=== PATIENT | female | born 1980 | race Caucasian/White ===

== ENCOUNTER 2016-06-07 13:25 | Day surgery (SDC) | payer BC ==
--- NOTE | 2016-06-08 11:51 | Operative Note ---
DATE OF SURGERY: 06/07/2016 PREOPERATIVE DIAGNOSIS: Urinary urge incontinence. POSTOPERATIVE DIAGNOSIS: Urinary urge incontinence. PROCEDURE: Cystoscopy. Surgeon: Jasvir Pardo M.D. Anesthesia: Local. PROCEDURE: Preop informed consent was obtained. Antibiotics were given. The patient was brought to the Procedure Room at the [facility], placed supine and in a modified frog-legged position with the genitalia prepped and draped sterilely. Flexible cystoscopy was performed. The urethra appears unremarkable. The external genitalia and vaginal vault appears well supported without any significant prolapse or abnormality. The bladder was entered and inspected systematically. The ureteral orifice had normal appearance and positioning. The bladder appeared unremarkable with no evidence of tumor, stone, foreign body or any urothelial abnormality whatsoever. The scope was then withdrawn. The procedure was terminated and the patient tolerated this quite well. PLAN: I held a discussion regarding management of her urge incontinence symptoms and she has agreed to try VESIcare 10 mg samples for 1 month and then follow up in the [facility] to review her response to this treatment. CC: Al Klein D.O. JERARDO
== END 2016-06-07 13:37 | disposition home or self-care (01) ==
LOC: HOP 13:25
PROVIDERS: ATTEND Urology
DX: R32 Unspecified urinary incontinence (principal)

== ENCOUNTER 2017-02-01 19:50 | Emergency (ER) | payer BC ==
--- NOTE | 2017-02-01 20:04 | Emergency Department Record ---
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 At home tonight around 7 p.m. she developed a substernal pressure/ache radiating straight through to her back about 5/10 severity which continues to the present exam. It is NOT associated with SOB, KAMI, diaphoresis , and she knows of nothing that makes it worsen, or improves it. She too a generic xanax prior to arrival but it has also not helped.. She has had much milder chest pressure associated with anxiety in the past, but this is much more severe and prolonged compared to her prior episodes. She has no history of DE, PE, DVT, CVA, DM, htn, chol elevation, or FH DE. - Related Data Home Medications Medication Instructions Recorded Confirmed Last Taken Alprazolam [Xanax] 0.25 mg PO Q8H PRN 02/01/17 02/01/17 02/01/17 Bupropion HCl [Bupropion Xl] 150 mg PO DAILY 02/01/17 02/01/17 Unknown Norethindrone-E.estradiol-Iron 1 tab PO DAILY 02/01/17 02/01/17 Unknown [Blisovi Fe 1.5-30 Tablet] Solifenacin Succinate [Vesicare] 10 mg PO DAILY 02/01/17 02/01/17 Unknown Allergies Allergy/AdvReac Type Severity Reaction Status Date / Time No Known Drug Allergies Allergy Verified 09/25/13 15:04 Review of Systems Reviewed: No additional complaints except as noted below Constitutional: Reports: As per HPI. Denies: Chills, Fever, Malaise, Night sweats, Weakness, Weight change Eyes: Reports: As per HPI. Denies: Eye discharge, Eye pain, Photophobia, Vision change ENT: Reports: As per HPI. Denies: Congestion, Dental pain, Ear pain, Epistaxis , Hearing loss, Throat pain Respiratory: Reports: As per HPI. Denies: Cough, Dyspnea, Hemoptysis, Stridor, Wheezes Cardiovascular: Reports: As per HPI. Denies: Arrhythmia, Chest pain, Dyspnea on exertion, Edema, Murmurs, Orthopnea, Palpitations, Paroxysmal nocturnal dyspnea, Rheumatic Fever, Syncope Endocrine: Reports: As per HPI. Denies: Fatigue, Heat or cold intolerance, Polydipsia, Polyuria Gastrointestinal: Reports: As per HPI. Denies: Abdominal pain, Constipation, Diarrhea, Hematemesis, Hematochezia, Melena, Nausea, Vomiting Genitourinary: Reports: As per HPI. Denies: Abnormal menses, Discharge, Dyspareunia, Dysuria, Frequency, Hematuria, Incontinence, Retention, Urgency Musculoskeletal: Reports: As per HPI. Denies: Arthralgia, Back pain, Gout, Joint swelling, Myalgia, Neck pain Skin: Reports: As per HPI. Denies: Bruising, Change in color, Change in hair/ nails, Lesions, Pruritus, Rash Neurological: Reports: As per HPI. Denies: Abnormal gait, Confusion, Headache, Numbness, Paresthesias, Seizure, Tingling, Tremors, Vertigo, Weakness Psychiatric: Reports: As per HPI. Denies: Anxiety, Auditory hallucinations, Depression, Homicidal thoughts, Suicidal thoughts, Visual hallucinations Hematological/Lymphatic: Reports: As per HPI. Denies: Anemia, Blood Clots, Easy bleeding, Easy bruising, Swollen glands Past Medical History - SOCIAL HISTORY Smoking Status: Never smoker - RESPIRATORY Hx Respiratory Disorders: No - CARDIOVASCULAR Hx Cardio Disorders: No - NEURO Hx Neuro Disorders: No - GI Hx GI Disorders: No - Hx Genitourinary Disorders: No - ENDOCRINE Hx Endocrine Disorders: No - MUSCULOSKELETAL Hx Musculoskeletal Disorders: No - PSYCH Hx Psych Problems: No - HEMATOLOGY/ONCOLOGY Hx Hematology/Oncology Disorders: No Physical Exam - General General Appearance: Alert, Oriented x3, Cooperative, No acute distress - Head Head exam: Normal inspection - Eye Eye exam: Normal appearance, PERRL Pupils: Normal accommodation - ENT ENT exam: Normal exam, Mucous membranes moist, Normal external ear exam, Normal orophraynx, TM's normal bilaterally Ear exam: Normal external inspection. negative: External canal tenderness Nasal Exam: Normal inspection. negative: Discharge, Sinus tenderness Mouth exam: Normal external inspection, Tongue normal Teeth exam: Normal inspection. negative: Dental caries Throat exam: Normal inspection. negative: Tonsillar erythema, Tonsillar exudate - Neck Neck exam: Normal inspection, Full ROM. negative: Tenderness - Respiratory Respiratory exam: Normal lung sounds bilaterally. negative: Respiratory distress - Cardiovascular Cardiovascular Exam: Regular rate, Normal rhythm, Normal heart sounds - GI/Abdominal GI/Abdominal exam: Soft, Normal bowel sounds. negative: Tenderness - Rectal Rectal exam: Deferred - exam: Deferred - Extremities Extremities exam: Normal inspection, Full ROM, Normal capillary refill. negative: Calf tenderness, Pedal edema, Tenderness - Back Back exam: Reports: Normal inspection, Full ROM. Denies: CVA tenderness (R), Muscle spasm, Rash noted, Tenderness - Neurological Neurological exam: Alert, Normal gait, Oriented X3, Reflexes normal - Psychiatric Psychiatric exam: Normal affect, Normal mood - Skin Skin exam: Dry, Intact, Normal color, Warm Course Vital Signs 02/01/17 19:57 Temperature 97.9 F Pulse Rate [ 80 Pulse Ox Probe] Respiratory 20 Rate Blood Pressure 132/64 [Left Arm] Pulse Ox 100 - Reevaluation(s) Reevaluation #1: Patient is 4/10 now from 09/22 earlier. Awaiting CXR. 02/01/17 21:11 Reevaluation #2: Patient is more comfortable, however she states her pain is still going straight through to her back. Will order chest CTA. She denies GI symptoms . Toradol ordered. 02/01/17 21:21 Reevaluation #3: Discussed in detail the results of repeat troponin, chest and abdomen CT results , and follow up with PCP. Patient understands and agrees. She is 0-1/10 symptoms and is ready for discharge home. 02/01/17 23:58 Medical Decision Making - Management Options MDM Management: No Additional Work-up Planned - Data Complexity MDM Data: Labs Ordered and/or Reviewed (Repeat troponin < 0.010), X-Ray Ordered and/or Reviewed (CT CHest/Abd: Normal aorta, no acute pathology, probable hemangioma of the liver. Per radiologist.), EKG Ordered and/or Reviewed (EKG: NSR at 74, ) - Lab Data Result diagrams: 02/01/17 20:10 02/01/17 20:10 - EKG Data -: EKG Interpreted by Me EKG: Normal EKG Disposition Disposition: Discharge Clinical Impression: Non-cardiac chest pain Disposition: Home, Self-Care Condition: (1) Good Instructions: Chest Pain (ED) Additional Instructions: Follow up with PCP as needed. Inform you PCP about the "probable hemangioma in the liver" incidentally found on your CT scan at this visit when you follow up with your PCP. Quality - Quality Measures Quality Measures: N/A - Blood Pressure Screening Does Patient Have Any of the Following: No Blood Pressure Classification: Normal BP Reading Systolic Measurement: 112 Diastolic Measurement: 76 Screening for High Blood Pressure: < Normal BP, F/U Not Required > [G8783]
[2017-02-01] MEDS ORDERED: ASPIRIN 325 MG TABLET PO ONE (20:07)
[2017-02-01] MEDS ORDERED: ONDANSETRON HCL IV 4 MG/2 ML VIAL IVP ONE (20:28)
[2017-02-01] MEDS ORDERED: FAMOTIDINE IV 20 MG in 0.9 % SODIUM CHLORIDE 100ML 100 ML IVPB ONE (20:29)
[2017-02-01 20:30] LABS: BASO % 0.1 % (0-6); EOS % 0.9 % (0-6); GRAN % 49.7 % (47-80); HEMOGLOBIN 12.3 gm/dl (11.6-16.0); LYMPH % 35.8 % (16-45); MEAN CELL VOLUME 95.4 fl (81-97); MEAN CORPUSCULAR HEMOGLOBIN 31.7 pg (27-33); MEAN CORPUSCULAR HGB CONC 33.2 g/dl (32-36); MEAN PLATELET VOLUME 10.5 fl (7.4-10.4); MONO % 13.5 % (0-9); PLATELET COUNT 423 K/uL (130-400); RED BLOOD COUNT 3.88 M/uL (3.80-5.40); RED CELL DISTRIBUTION WIDTH 12.9 % (11.5-14.5); URINE APPEARANCE CLEAR; URINE BILIRUBIN NEGATIVE (NEGATIVE); URINE BLOOD NEGATIVE (NEGATIVE); URINE COLOR YELLOW; URINE GLUCOSE (UA) NEGATIVE (NEGATIVE); URINE KETONE NEGATIVE (NEGATIVE); URINE LEUKOCYTE ESTERASE SMALL (NEGATIVE); URINE NITRITE NEGATIVE (NEGATIVE); URINE PROTEIN NEGATIVE (NEGATIVE); URINE UROBILINOGEN 0.2 E.U./dL (0.20 - 1.00); WHITE BLOOD COUNT W/O DIFF 7.5 K/uL (4.2-12.2)
[2017-02-01 20:38] LABS: URINE BACTERIA FEW; URINE RBC 0 - 2 (NONE SEEN)
[2017-02-01 20:45] LABS: BLOOD UREA NITROGEN 10 mg/dL (6-20); CREATININE 0.7 mg/dL (0.5-0.9); EST GLOMERULAR FILTRATION RATE > 60 mL/min
[2017-02-01 20:46] LABS: INR 0.94; PARTIAL THROMBOPLASTIN TIME 27.8 SECONDS (24.5-39.1); PROTHROMBIN TIME (PATIENT) 10.2 SECONDS (9.5-12.1)
[2017-02-01 20:48] LABS: GLUCOSE,RANDOM 103 mg/dL (74-109)
[2017-02-01 20:51] LABS: ALB/GLOB RATIO 1.5 (1.1-1.8); ALBUMIN 4.2 g/dL (4.0-5.0); ALKALINE PHOSPHATASE 56 U/L (35-104); ALT/SGPT 34 U/L (<33); AST/SGOT 23 U/L (10.0-35.0)
[2017-02-01 21:01] LABS: THYROID STIMULATING HORMONE 2.58 uIU/mL (0.270-4.20)
[2017-02-01] MEDS ORDERED: KETOROLAC 30 MG/ML VIAL IVP ONE (21:19)
--- NOTE | 2017-02-02 08:49 | CT ANGIOGRAM REPORT ---
EXAM: CT ANGIOGRAM OF THE CHEST AND ABDOMEN WITH CONTRAST AND WITH POST PROCESSING HISTORY: CHEST PAIN RADIATING TO THE BACK FOR THE PAST TWO HOURS. TECHNIQUE: Standard CT angiography of the chest and abdomen was performed following the bolus administration of 100 ml of Omnipaque 350. Additional multiplanar maximum intensity projection and 3D volume rendered reformatted images were performed on an independent workstation under concurrent supervision. Comparison: Previous CT scan of the abdomen and pelvis dated 12/24/10. FINDINGS: CTA OF THE CHEST: The heart is normal. The aorta is normal in caliber without dissection. The pulmonary arterial tree is normal. There are no acute pulmonary infiltrates. There are a few scattered noncalcified nodules within both lungs. The largest within the right lung is located within the upper lobe anteriorly and measures 5 mm. The largest within the left lung is located within the upper lobe and measures 4 mm. There is no pneumothorax or effusion. The chest wall and axillary regions are normal. There are no acute osseous abnormalities. CTA OF THE ABDOMEN: The aorta is normal in caliber. There is no dissection. The aortic bifurcation and iliac vessels appear normal. The celiac trunk, superior mesenteric artery, and inferior mesenteric artery are normal. There are two renal arteries bilaterally which are normal. The left renal vein has a circumaortic configuration which is an anatomic variant. A small enhancing area within the medial segment of the left hepatic lobe has the appearance of a hemangioma. This measures 1.4 cm in maximal dimension. A tiny hemangioma within the dome of the liver is also present. This measures 6 mm in diameter and is unchanged from the previous study. The enhancing area within the medial segment of the left hepatic lobe is not clearly seen previously likely due to differences in the phase of contrast administration. The gallbladder, biliary tree, pancreas, spleen, adrenal glands, and kidneys are normal. There is no lymphadenopathy. The bowel and mesentery as well as the stomach and epigastrium appear normal. IMPRESSION: 1. NO ACUTE CHEST OR ABDOMINAL PATHOLOGY. THERE IS NO AORTIC ANEURYSM OR DISSECTION. 2. SCATTERED NONCALCIFIED NODULES WITHIN BOTH LUNGS, THE LARGEST OF WHICH MEASURES 5 MM IN MAXIMAL DIMENSION. A FOLLOW-UP CT SCAN OF THE CHEST IS RECOMMENDED IN TWELVE MONTHS TO CONFIRM STABILITY OF THESE AREAS. 3. PROBABLE HEMANGIOMAS WITHIN THE RIGHT AND LEFT HEPATIC LOBES. JOB NUMBER: [id number] [facility]
== END 2017-02-02 00:05 | disposition home or self-care (01) ==
LOC: ER 19:50
DX: R07.89 Other chest pain (principal); R11.0 Nausea
CPT/HCPCS: 99284 ×2; 96374; 96375; 85025; 85730; 85610; 80053; 81001; 84443; 81025; 84484; 85379; 71275; 74175; 93005; 93010; Q9967; J3490; J1885